=== PATIENT | male | born 1970 | race African-American/Black ===

== ENCOUNTER 2018-12-15 15:30 | Outpatient (CLI) | payer BC ==
[2018-12-15 16:15] LABS: PLATELET COUNT 190 K/uL (142-355)
== END 2018-12-15 20:44 | disposition home or self-care (01) ==
LOC: LABW 15:30
PROVIDERS: Internal Medicine Sleep Medicine
DX: J45.20 Mild intermittent asthma, uncomplicated (principal)
CPT/HCPCS: 36415; 82785; 85027; 86003